=== PATIENT | male | born 1960 | race Caucasian/White ===

== ENCOUNTER 2018-09-02 08:11 | Day surgery (SDC) | payer OTHER ==
[2018-09-01 09:17] VITALS: BMI 31.1
[~2018-09-02 08:11] MED LIST: LACTATED RINGERS 1,000 ML IV SCH; LIDOCAINE 1% 20 ML VIAL (10MG/ML) FOR IV START INTRADERMA PRN
[2018-09-02 08:35] VITALS: TEMP 97.6
[2018-09-02] MEDS ORDERED: PROPOFOL 10 MG/ML 20 ML VIAL IV ONE (09:14)
[2018-09-02] MEDS ORDERED: LIDOCAINE 1% INJ 10MG/ML (20 ML MDV) ONE (09:14)
[2018-09-02] MEDS ORDERED: MIDAZOLAM 2 MG/2 ML VIAL ONE (09:14)
[2018-09-02] MEDS ORDERED: fentaNYL (PF) 50 MCG/ML 2 ML AMP ONE (09:14)
--- NOTE | 2018-09-02 09:40 | P.PCN ---
Date of Procedure: 09/02/18 Procedure(s) Performed: Brief history: Patient is a pleasant 57-year-old white male, scheduled for an elective upper endoscopy as well as colonoscopy as a part of evaluation of GERD/screening for colon cancer. Procedure performed: Esophagogastroduodenoscopy with biopsy Colonoscopy with biopsy and snare polypectomy Preoperative diagnosis: GERD Screening for colon cancer Anesthesia: MAC Procedure: After informed consent was obtained from the patient was brought into the endoscopy unit and IV sedation was administered by anesthesia under continuous monitoring. Initially upper endoscopy was done. The Olympus GF 160 video endoscope was inserted inserted into the mouth and esophagus intubated without any difficulty and was gradually advanced into the stomach and duodenum and carefully examined. The bulb and second part of the duodenum appeared normal. The scope was then withdrawn into the stomach adequately insufflated with air and upon careful examination the antrum had mild gastritis and biopsies were done from this area. There are multiple gastric polyps noted in the body and cardia of the stomach which were biopsied. The polyp that was noted in the cardia of the stomach was almost 1.5-2 cm in size. The mucosa of the body, cardia and fundus appeared normal. The scope was then withdrawn into the esophagus. The GE junction was located at 40 cm to the incisors. small paraesophageal hiatal hernia noted. It appeared regular with no erythema erosions or ulcerations. Rest of the esophagus appeared normal. Patient tolerated the procedure well. At this time the patient continued to remain sedation. Initial digital rectal examination was normal. Olympus CF 160 video colonoscope was then inserted into the rectum and gradually advanced to the cecum without any difficulty. Careful examination was performed as the scope was gradually being withdrawn. The prep was excellent. The cecum, appeared normal. In the setting colon there was a 2-3 mm sessile polyp that was removed by cold biopsy. In the descending colon there was a 3 mm sessile polyp removed by cold biopsy. In the sigmoid colon there was a 5 mm polyp that was removed by snare polypectomy. Rest of the ascending colon, transverse colon, descending colon, sigmoid colon and rectum appeared normal. Scattered left sided diverticulosis seen. Retroflexion was performed in the rectum and no lesions were noted. Patient tolerated the procedure well. Impression: 1. Upper endoscopy revealed multiple gastric polyps and small paraesophageal hiatal hernia 2. Colonoscopy revealed: a) 2 mm sessile ascending colon polyp status post cold biopsy b) 3 mm sessile descending colon polyp status post cold biopsy c) 5 mm sessile sigmoid colon polyp serous was snare polypectomy d) scattered sigmoid diverticula Recommendations: Findings of this examination were discussed with the patient as well as his family. He was advised to follow with the biopsy results. He'll continue with Prilosec 20 mg daily and follow antireflux measures. If the biopsy of the colon polyps shows adenoma, he can have a repeat colonoscopy in 5 years
[2018-09-02 09:46] VITALS: RESP 18
[2018-09-02 10:04] VITALS: BP 123/79; PULSE 58
== END 2018-09-02 10:47 | disposition home or self-care (01) ==
LOC: ORWHC2ENDO 08:11
PROVIDERS: ATTEND Internal Medicine Gastroenterology
DX: Z12.11 Encounter for screening for malignant neoplasm of colon (principal); K63.5 Polyp of colon; K29.50 Unspecified chronic gastritis without bleeding; D12.5 Benign neoplasm of sigmoid colon; K21.9 Gastro-esophageal reflux disease without esophagitis; K57.30 Diverticulosis of large intestine without perforation or abscess without bleeding; K44.9 Diaphragmatic hernia without obstruction or gangrene; I10 Essential (primary) hypertension; E78.5 Hyperlipidemia, unspecified; K31.7 Polyp of stomach and duodenum; Z79.899 Other long term (current) drug therapy
CPT/HCPCS: 88305; 45385; 45380; 43239; J2250; J2001; J3010; J2704

== ENCOUNTER → 2021-08-21 | Outpatient (CLI) | payer OTHER ==
[2021-08-21 10:28] LABS: Partial Thromboplastin Time 23.5 sec (22.0-30.0); Prothrombin Time 10.5 sec (9.0-12.0)
[2021-08-21 10:59] LABS: Appearance,Urine Clear (Clear); Bilirubin,Urine Negative (Negative); Blood,Urine Negative (Negative); Color,Urine Yellow; Glucose,Urine (UA) Negative (Negative); Ketones,Urine Negative (Negative); Leukocyte Esterase,Urine Negative (Negative); Nitrite,Urine Negative (Negative); Protein,Urine Negative (Negative); Urobilinogen,Urine <2.0 mg/dL (<2.0)
[2021-08-21 15:07] LABS: HCT 45.3 % (39.6-50.0); MCH 28.7 pg (27.0-32.0); MCHC 33.1 g/dL (32.0-37.0); MCV 86.8 fL (80.0-97.0); NRBC Per 100 WBC 0 /100 WBCS (0.0-0.0); Platelet Count 244 X 10*3/uL (140-440); RBC 5.22 X 10*6/uL (4.40-5.60); RDW 11.7 % (11.5-14.5); WBC 6.84 X 10*3/uL (4.50-10.00)
[2021-08-21 15:17] LABS: African American GFR (CKD) 69.6 (60.0-200.0); Albumin 4.4 g/dL (3.8-4.9); Albumin/Globulin Ratio 1.53 (1.60-3.17); Anion Gap 11.9 mmol/L (10.00-18.00); BUN/Creat Ratio 12.81 Ratio (12.00-20.00); Blood Urea Nitrogen 16.4 mg/dL (9.0-27.0); Calcium 9.6 mg/dL (8.7-10.3); Carbon Dioxide 24.4 mmol/L (20.0-27.5); Globulin 2.9 g/dL (1.6-3.3); Potassium 4.2 mmol/L (3.5-5.5); Total Bilirubin 0.4 mg/dL (0.30-1.20); Total Protein 7.3 g/dL (6.2-8.2)
== END | disposition home or self-care (01) ==
LOC: LABPAT 09:30
PROVIDERS: ATTEND Orthopaedic Surgery
DX: Z01.812 Encounter for preprocedural laboratory examination (principal)
CPT/HCPCS: 80053; 81003; 85027; 85610; 85730; 87070

== ENCOUNTER 2021-08-29 11:28 | Day surgery (SDC) | payer OTHER ==
[2021-08-27 15:23] VITALS: BMI 31.1
[~2021-08-29 11:28] MED LIST changes: +ACETAMINOPHEN TAB 500 MG TAB PO PRN; +DEXAMETHASONE SOD PHOSPHATE 10 MG/ML 1 ML VIAL IV PRN; +DOCUSATE 100 MG CAP PO PRN; +FAMOTIDINE 20 MG/2 ML VIAL IVP PRN; +KETOROLAC 15 MG/ML 1 ML VIAL IVP PRN; -LACTATED RINGERS 1,000 ML IV SCH; -LIDOCAINE 1% 20 ML VIAL (10MG/ML) FOR IV START INTRADERMA PRN; +ONDANSETRON 4 MG/2 ML VIAL IVP PRN; +TRANEXAMIC ACID 1,000 MG in SODIUM CHLORIDE 0.9% 100 ML IVPB PRN; +VANCOMYCIN 1,000 MG in SODIUM CHLORIDE 0.9% 250 ML IVPB PRN; +oxyCODONE ER 10 MG TAB.ER.12H PO PRN
[2021-08-29] MEDS ORDERED: LIDOCAINE 1% (10MG/ML) FOR IV START INTRADERMA PRN (11:32)
[2021-08-29] MEDS ORDERED: HYDROmorphone 0.5 MG/0.5 ML SYRINGE IVP PRN ×2 (11:32→15:11)
[2021-08-29] MEDS ORDERED: ROPIVACAINE/EPI/CLONIDINE/KET 50 ML SYRINGE MISCELLANE PRN (11:34)
[2021-08-29] MEDS ORDERED: TRANEXAMIC ACID 1,000 MG in SODIUM CHLORIDE 0.9% 100 ML IVPB ONE (11:34)
[2021-08-29] MEDS: LACTATED RINGERS 1,000 ML IV SCH ×2 (12:05→12:33)
[2021-08-29] MEDS ORDERED: PROPOFOL 10 MG/ML 20 ML VIAL IV ONE (12:25)
[2021-08-29] MEDS ORDERED: LIDOCAINE 1% INJ 10MG/ML (20 ML MDV) ONE (12:25)
[2021-08-29] MEDS ORDERED: NEOSTIGMINE 1 MG/ML 10 ML VIAL ONE (12:25)
[2021-08-29] MEDS ORDERED: SODIUM CHLORIDE 0.9% 100 ML BAG ONE (12:25)
[2021-08-29] MEDS ORDERED: GLYCOPYRROLATE 0.2 MG/ML 2 ML VIAL ONE (12:25)
[2021-08-29] MEDS ORDERED: TRANEXAMIC ACID 1,000 MG/10 ML VIAL ONE (12:25)
[2021-08-29] MEDS ORDERED: fentaNYL (PF) 50 MCG/ML 2 ML AMP ONE (12:25)
[2021-08-29] MEDS ORDERED: SUCCINYLCHOLINE CHLORIDE VIAL 200 MG/10 ML VIAL IV ONE (12:25)
[2021-08-29] MEDS ORDERED: PHENYLEPHRINE-0.9% NACL SYG 1,000 MCG/10 ML SYRINGE ONE (12:25)
[2021-08-29] MEDS ORDERED: HYDROmorphone (PF) 1 MG/ML ONE (12:25)
[2021-08-29] MEDS ORDERED: ePHEDrine 50 MG/ML 1 ML VIAL ONE (12:25)
[2021-08-29] MEDS ORDERED: ROCURONIUM 10 MG/ML (5 ML VIAL) IV ONE (12:25)
[2021-08-29] MEDS ORDERED: MIDAZOLAM 2 MG/2 ML VIAL ONE (12:25)
[2021-08-29] MEDS ORDERED: LACTATED RINGERS 1,000 ML IV ONE (14:10)
[2021-08-29] MEDS ORDERED: NALOXONE 0.4 MG/ML 1 ML VIAL IV PRN (15:09)
[2021-08-29] MEDS ORDERED: HYDROmorphone 1 MG/ML 1 ML SYRINGE IVP PRN (15:11)
[2021-08-29] MEDS ORDERED: HYDROcodone/APAP 5-325MG 1 EACH TAB PO PRN (15:11)
[2021-08-29] MEDS ORDERED: hydrOXYzine pamoate 25 MG CAP PO PRN (15:11)
[2021-08-29] MEDS ORDERED: HYDROmorphone 0.2 MG/1 ML SYRINGE IVP PRN (15:11)
--- NOTE | 2021-08-29 15:12 | P.OP ---
Date of Procedure: 08/29/21 Preoperative Diagnosis: Severe right hip arthritis Postoperative Diagnosis: Severe right hip arthritis Procedure(s) Performed: Right direct anterior total hip arthroplasty Implants: 1. Vinicius Trident II 36 mm cup 2. [place] accolade II size #6, 127-degree 3. Biolox delta 40 mm, +0 Anesthesia: GETA Surgeon: Pravin Caballero Physical Therapy Aide #1: Jose King Estimated Blood Loss (ml): 200 IV fluids (ml): 1,200 Pathology: none sent Condition: stable Disposition: PACU Indications for Procedure: I had a long discussion with the patient in the office on the potential risks and complications of an elective total hip replacement through a direct anterior approach. Risks discussed include, but are certainly not limited to, risks from anesthesia, superficial infection requiring local wound care or antibiotics, deep bob-prosthetic joint infection and the treatment required to eradicate infection, intraoperative fracture, postoperative periprosthetic fracture, damage to local blood vessels or nerves particularly the lateral femoral cutaneous nerve, delayed wound healing requiring local wound care or possibly surgical debridement, hip dislocation, leg length discrepancy, soft tissue irritation around the total hip implant such as iliopsoas tendinitis or trochanteric bursitis, wear and osteolysis from the implants, squeaking or audible noises, groin pain, thigh pain, heterotopic ossification, stiffness, aseptic loosening of the implants, dissatisfaction with surgical outcome, need for revision surgery, DVT, PE, swelling of the operative extremity, acute coronary event, stroke, failure to thrive, and possibly loss of life or limb. The patient understands that while these are the most common complications after an elective hip replacement there are certainly other less common complications possible. They were given ample time to ask questions regarding the potential complications of a hip replacement. Following our discussion the patient provided their verbal and written consent to go forward with an elective total hip replacement. Operative Findings: Severe right hip arthritis, with collapse of the femoral head and diffuse arthritic changes both on the femoral head and in the acetabulum Description of Procedure: The patient was identified in the preoperative holding area and the correct hip was marked with my initials. I reviewed the procedure and consent with the patient. All of their questions were answered. The patient was then brought back into the operating room by anesthesia. While on the [facility] anesthesia was administered by the anesthesia team. Preoperative antibiotics and tranexamic acid were also given. After the patient was under anesthesia I examined their ankles to determine their preoperative leg length discrepancy. The skin over the anterior aspect of the hip was shaved to remove hair over the site of planned incision. Both feet and ankles were padded with webril and boots for the Harwick were applied. The patient was then carefully transferred onto the Harwick table. A perineal post was immediately placed. The arms were placed on arm holders and were well-padded. Both boots were secured to the spars on the Harwick table. The patient was positioned so that the pelvis was centered over the post. Nonsterile drapes were applied. A timeout was performed identifying the correct patient, operative extremity, and procedure. At this point fluoroscopy was brought in to take preoperative images of the pelvis and operative hip. Using the standing AP pelvis from the office as a template, a comparable image was obtained with fluoroscopy. A metallic bar was used to create a bi-ischial line for use as a reference to leg length adjustments during the procedure. Global offset was also measured on both the operative and nonoperative leg. Fluoroscopy was then brought out and a pre-scrub using a chlorhexidine scrub brush was performed. The operative limb was then prepped and draped in the standard sterile fashion. An anterior longitudinal incision was made lateral and distal to the ASIS. The skin and subcutaneous tissues were incised sharply. The underlying tensor fascia was identified and incised in its midportion. The fascia was dissected free from the underlying muscle and the muscle belly was retracted. A blunt tipped cobra retractor was placed over the superior neck under the muscle fibers of the gluteus minimus. The deep enveloping fascia of the tensor was incised. The anterior leash of vessels were then identified and cauterized. The fascia between the rectus and the capsule was then incised and the pre-capsular fat was excised. A second Cobra was placed inferior to the neck. The interval between the rectus and iliocapsularis and the hip capsule was developed and a retractor was placed carefully over the anterior rim of the acetabulum. A T-shaped anterior capsulotomy was performed. The superior capsular leaflet was left in place in the inferior capsular flap was excised. The Cobra retractors were placed intracapsularly. We then made a femoral neck osteotomy according to preoperative and intraoperative templating and confirmed the level of the osteotomy using fluoroscopic imaging. The femoral head was removed, passed off to the back table, and sized. The superior capsular flap was excised. Retractors were placed circumferentially exposing the acetabulum. We then circumferentially debrided the acetabulum free of labrum and osteophytes. The pulvinar was removed to fully visualize the cotyloid fossa. We then sequentially reamed to achieve peripheral fit and excellent bleeding subchondral bone. The socket was thoroughly irrigated. The acetabular component was impacted into the appropriate position using fluoroscopy to guide version, inclination, and depth of insertion taking care to have a comparable image of the AP pelvis to the standing image taken in the office. An excellent press-fit was achieved and final position was confirmed using fluoroscopy. The press fit was augmented with bony cancellus dome screws. The liner was then impacted into the socket. Attention was then turned to the femur. The remnant dorsal lateral capsule was excised. The short external rotators were visible and protected. A bone hook was used to confirm appropriate translation of the trochanter away from the acetabulum. The leg was then extended and adducted and the bone hook was used to elevate the femur for broaching. A box osteotome and blunt tipped canal sound was then utilized to gain access to the femoral canal. We then sequentially broached the femur in appropriate anteversion until excellent torsional stability was achieved. The neck cut was brought flush to the trial broach with a calcar planar. A trial neck and head were then placed onto the broach and the hip was atraumatically reduced under direct visualization. External rotation to 90 was performed to assess stability. Fluoroscopy was brought in. An AP and lateral fluoroscopic image of the proximal femur was obtained to assess position and fill of the trial broach. An AP of the pelvis was then obtained and matched to the preoperative image taken. A bi-ischial bar was then placed and measurements were taken to assess changes in length and offset. The hip was then carefully dislocated, the proximal femur was exposed, and the trial implants were removed. The wound and proximal femur was thoroughly irrigated using sterile saline and pulsatile lavage. The final femoral implant was dispensed and gently tapped into place generating an excellent press-fit. The trunnion was cleansed and the final head was tapped into place to engage the Zhu taper. The acetabulum was irrigated and visualized to be free of debris. The hip was carefully reduced. Stability was checked clinically with external rotation to 90 and there was no evidence of instability. Final fluoroscopic images were taken. The wound was then thoroughly irrigated and soaked with a dilute Betadine rinse for 3 minutes. 3 L of sterile saline was irrigated through the wound using pulsatile lavage. Local anesthetic cocktail was injected into the soft tissues around the surgical field. A deep drain was placed. The wound was then closed in layers. A sterile dressing was placed over the surgical incision and drain site. The drapes were taken down and the patient was carefully transferred off of the Harwick table. Following removal of the boots the leg lengths felt acceptable. The patient was then taken to recovery room having tolerated the procedure well. Jose King PA-C was required as a skilled licensed physical therapy assistant for patient positioning, surgical exposure, retraction, placement of implants, and closure of the surgical wound. PLAN: The patient can weight-bear as tolerated on the operative extremity. 2 doses of postoperative antibiotics. DVT prophylaxis with aspirin 81 mg twice a day based on preoperative risk stratification. Physical therapy for gait training. Discontinue drain postoperative day #1 if output is less than 100 mL per shift.
--- NOTE | 2021-08-29 16:11 | XR ---
Fluoroscopy INDICATION: Pain FINDINGS: Fluoroscopy time: 36 seconds. Images obtained: 7. IMPRESSIONS: 1. Documentation of fluoroscopy.
--- NOTE | 2021-08-29 16:18 | FL ---
Fluoroscopy INDICATION: Pain FINDINGS: Fluoroscopy time: Not reported Images obtained: 0. IMPRESSIONS: 1. Documentation of fluoroscopy.
[2021-08-29] MEDS ORDERED: ONDANSETRON 4 MG/2 ML VIAL IVP PRN (19:19)
[2021-08-29] MEDS: ASPIRIN 81 MG PO SCH (20:02)
[2021-08-29] MEDS: HYDROcodone/APAP 5-325MG 1 EACH TAB PO PRN (20:03)
[2021-08-29] MEDS ORDERED: SENNOSIDES-DOCUSATE SODIUM 1 EACH TAB PO SCH (21:00)
[2021-08-30] MEDS: HYDROcodone/APAP 5-325MG 1 EACH TAB PO PRN ×2 (01:13→07:17)
[2021-08-30] MEDS: ASPIRIN 81 MG PO SCH (07:17)
[2021-08-30 07:53] VITALS: BP 120/77; PULSE 64; RESP 16; TEMP 98
[2021-08-30] MEDS ORDERED: ALPRAZolam 0.5 MG TAB PO PRN (09:11)
[2021-08-30] MEDS ORDERED: ATORVASTATIN 20 MG TAB PO SCH (09:15)
[2021-08-30] MEDS ORDERED: LOSARTAN 50 MG TAB PO SCH (09:15)
[2021-08-30] MEDS ORDERED: PANTOPRAZOLE 40 MG TABLET PO SCH (09:15)
[2021-08-30] MEDS ORDERED: PANTOPRAZOLE 40 MG/10 ML VIAL IVP SCH (09:15)
[2021-08-30 09:26] LABS: Basophils # (A) 0.01 X 10*3/uL (0.00-0.10); Basophils % (A) 0.1 %; Eosinophils # (A) 0 X 10*3/uL (0.04-0.35); Eosinophils % (A) 0 %; HGB 12.3 g/dL (13.0-17.0); Immature Grans, Automated 0.4 %; Lymphocytes # (A) 0.69 X 10*3/uL (0.90-5.00); MCH 28.5 pg (27.0-32.0); MCHC 32.4 g/dL (32.0-37.0); MCV 88.2 fL (80.0-97.0); Mean Platelet Volume 10.6 fL (9.5-12.2); Monocytes % (A) 6.9 %; NRBC Per 100 WBC 0 /100 WBCS (0.0-0.0); Neutrophils # (A) 9.98 X 10*3/uL (1.80-7.70); Neutrophils % (A) 86.6 %; Platelet Count 229 X 10*3/uL (140-440); RBC 4.31 X 10*6/uL (4.40-5.60); RDW 11.9 % (11.5-14.5); WBC 11.53 X 10*3/uL (4.50-10.00)
--- NOTE | 2021-08-30 12:59 | P.DS ---
Providers Expected date of discharge: 08/30/21 Attending physician: Pravin Caballero Consults: 08/29/21 15:19 Consult Physician Routine Consulting Provider: Kush Kessler Reason/Comments: medical management Do you want consulting provider notified?: Yes Primary care physician: Kush Kessler [facility] Course: This is a 60-year-old male who has been followed in our office by Dr. Caballero for continued complaints of right hip pain due to right hip osteoarthritis. Treatment options were discussed, and patient elected to undergo a right total hip arthroplasty. Patient was seen pre-operatively by Dr. Kessler and cleared for surgery. Patient underwent a right total hip arthroplasty on 08/29/21. The procedure was performed without complication or sequelae. The patient is doing fairly well postoperatively. Vital signs and labs are stable on postoperative day #1. Hemovac drain was pulled bedside this afternoon. Patient was examined bedside today. Patient states he is overall doing very well and the pain in his right hip is well-controlled. He has been ambulating with a walker with minimal assistance. He has worked with physical therapy this morning. Patient is tolerating his diet well. He is voiding without issues. Patient is comfortable being discharged home today. Patient denies chest pain, shortness of breath, nausea, vomiting, fevers, chills. On examination, the patient is sitting up in the bed in no apparent distress. He is alert and orientated 3. On inspection of the right hip, there is a clean, dry, intact surgical dressing in place. There is no bleeding or drainage the dressing. Patient has good strength and ROM of the right ankle and toes. Motor and sensory function is intact of the right lower extremity. The dorsalis pedis pulse is easily palpable, the right lower extremity is warm and well perfused with brisk capillary refill. Calf is soft and non-tender to palpation. Patient is discharged home with home health in good condition, pending medical clearance. Patient will follow-up with Dr. Caballero in the office in 1 week. Please see med rec for accurate list of discharge medication. Plan - Discharge Summary Discharge Rx Participant: No New Discharge Prescriptions: New Aspirin 81 mg PO BID 30 Days #60 tab Docusate [Colace] 100 mg PO BID #60 capsule HYDROcodone/APAP 5-325MG [[place] 5-325] 1 - 2 tab PO Q6HR PRN 7 Days #40 tab PRN Reason: Pain Omeprazole 40 mg PO DAILY 30 Days #30 cap No Action Simvastatin [Zocor] 40 mg PO DAILY Losartan Potassium 100 mg PO DAILY Omeprazole [PriLOSEC] [address] [facility] 1 tab PO DAILY ALPRAZolam [Xanax] 0.5 mg PO HS PRN PRN Reason: sleep [place]-3 Fatty Acids/Fish Oil [Fish Oil 1,000 mg Softgel] 1 each PO DAILY Cyclobenzaprine [Flexeril] 10 mg PO DAILY PRN PRN Reason: muscle spasms traMADol HCL [Ultram] 50 mg PO Q6HR PRN PRN Reason: Pain Mupirocin 2% Oint [Bactroban 2% Oint] 1 applic NASAL TID Discharge Medication List [facility] 1 tab PO DAILY 09/01/18 [History] Losartan Potassium 100 mg PO DAILY 09/01/18 [History] Omeprazole [PriLOSEC] 40 mg PO DAILY 09/01/18 [History] Simvastatin [Zocor] 40 mg PO DAILY 09/01/18 [History] ALPRAZolam [Xanax] 0.5 mg PO HS PRN 08/27/21 [History] Cyclobenzaprine [Flexeril] 10 mg PO DAILY PRN 08/27/21 [History] Mupirocin 2% Oint [Bactroban 2% Oint] 1 applic NASAL TID 08/27/21 [History] [place]-3 Fatty Acids/Fish Oil [Fish Oil 1,000 mg Softgel] 1 each PO DAILY 08/27/21 [History] traMADol HCL [Ultram] 50 mg PO Q6HR PRN 08/27/21 [History] Aspirin 81 mg PO BID 30 Days #60 tab 08/30/21 [Rx] Docusate [Colace] 100 mg PO BID #60 capsule 08/30/21 [Rx] HYDROcodone/APAP 5-325MG [[place] 5-325] 1 - 2 tab PO Q6HR PRN 7 Days #40 tab 08/30/21 [Rx] Omeprazole 40 mg PO DAILY 30 Days #30 cap 08/30/21 [Rx] Follow up Appointment(s)/Referral(s): Kush Kessler DO [Primary Care Provider] - 1 Week [facility] [NON-STAFF] - (Please call [facility] if you have questions regarding your walker. ) [facility], [NON-STAFF] - ([facility] will call you to schedule your in home physical therapy visits. You will have 3 visits/week for about an hour each. ) Pravin Caballero MD [Medical Doctor] - 09/10/21 9:00 am Activity/Diet/Wound Care/Special Instructions: Weight bear as tolerated on operative leg with a walker. Keep operative dressing intact until follow-up in the office. Take pain medications as prescribed. Take aspirin 81mg BID x 4 weeks. Follow-up in the office in [address] Cablalero. Call the office with any questions or concerns, Discharge Disposition: HOME SELF-CARE
--- NOTE | 2021-08-30 13:20 | P.CONS ---
History of Present Illness - Reason for Consult Consult date: 08/30/21 Medical management gastroesophageal reflux disease, hypertension Requesting physician: Pravin Caballero - Chief Complaint Right hip arthritis status post anterior total hip arthroplasty - History of Present Illness This is 60-year-old gentleman admitted with severe right hip arthritis, status post right direct anterior total hip arthroplasty. Tolerated procedure well. Ambulating, tolerating exertion well denies lightheadedness, dizziness, focal deficits. Denies chest pain, palpitations or shortness of breath. Passing flatus. Maintaining O2 sats in the 90s on room air. Pain controlled, complains of incisional soreness. Hemovac drain present. Review of Systems Constitutional: Denied any fatigue denied any fever. Cardio vascular: denied any chest pain, palpitations Gastrointestinal denied any nausea vomiting Pulmonary: Denied any shortness of breath cough Neurologic denied any new focal deficits ROS Statement: Those systems with pertinent positive or pertinent negative responses have been documented in the HPI. ROS Other: All systems not noted in ROS Statement are negative. Past Medical History Past Medical History: GERD/Reflux, Hyperlipidemia, Hypertension, Osteoarthritis (OA) Additional Past Medical History / Comment(s): hiatal hernia, colitis, History of Any Multi-Drug Resistant Organisms: None Reported Past Surgical History: Joint Replacement, Orthopedic Surgery Additional Past Surgical History / Comment(s): left shoulder replacement, 2 prior left shoulder surgeries, left knee replacement, L knee arthroscopy x 2, elbow sx Past Anesthesia/Blood Transfusion Reactions: Motion Sickness Past Psychological History: Anxiety Smoking Status: Never smoker Past Alcohol Use History: Occasional Past Drug Use History: None Reported - Past Family History Mother Family Medical History: No Reported History Medications and Allergies Home Medications Medication Instructions Recorded Confirmed Type Ct [facility] 1 tab PO DAILY 09/01/18 08/29/21 History Losartan Potassium 100 mg PO DAILY 09/01/18 08/29/21 History Omeprazole [PriLOSEC] 40 mg PO DAILY 09/01/18 08/29/21 History Simvastatin [Zocor] 40 mg PO DAILY 09/01/18 08/29/21 History ALPRAZolam [Xanax] 0.5 mg PO HS PRN 08/27/21 08/29/21 History Cyclobenzaprine [Flexeril] 10 mg PO DAILY PRN 08/27/21 08/29/21 History Mupirocin 2% Oint [Bactroban 2% 1 applic NASAL TID 08/27/21 08/29/21 History Oint] [place]-3 Fatty Acids/Fish Oil [Fish 1 each PO DAILY 08/27/21 08/27/21 History Oil 1,000 mg Softgel] traMADol HCL [Ultram] 50 mg PO Q6HR PRN 08/27/21 08/29/21 History Aspirin 81 mg PO BID 30 Days #60 tab 08/30/21 Rx Docusate [Colace] 100 mg PO BID #60 capsule 08/30/21 Rx HYDROcodone/APAP 5-325MG [[place] 1 - 2 tab PO Q6HR PRN 7 Days #40 08/30/21 Rx 5-325] tab Omeprazole 40 mg PO DAILY 30 Days #30 cap 08/30/21 Rx Allergies Allergy/AdvReac Type Severity Reaction Status Date / Time No Known Allergies Allergy Verified 08/29/21 11:47 Physical Exam Vitals: Vital Signs Temp Pulse Pulse Resp BP BP Pulse Ox 08/30/21 07:52 98.0 F 64 16 120/77 97 08/30/21 01:08 98.6 F 92 15 111/71 96 08/29/21 19:38 98.0 F 90 15 115/73 96 08/29/21 17:52 89 124/76 95 08/29/21 17:37 69 114/75 94 L 08/29/21 17:22 66 142/76 95 08/29/21 16:52 67 125/81 95 08/29/21 16:37 97.9 F 74 16 138/77 94 L 08/29/21 16:15 61 16 127/75 94 L 08/29/21 16:00 67 16 128/74 97 08/29/21 15:45 75 16 128/74 94 L 08/29/21 15:30 66 16 133/79 98 08/29/21 15:17 75 16 147/90 98 08/29/21 15:10 18 98 08/29/21 15:07 97.7 F 78 16 150/86 99 08/29/21 11:51 97.1 F L 54 L 16 140/83 98 Intake and Output 08/29/21 08/30/21 08/30/21 22:59 06:59 14:59 Intake Total 640 620 Output Total 445 250 200 Balance 195 370 -200 Intake: IV 100 Intake, IV Titration 620 Amount Lactated Ringers 1,000 ml 520 @ 20 mls/hr IV .Q24H COMPA Rx#:[id number] ceFAZolin 2 gm In Sodium 100 Chloride 0.9% 50 ml @ 100 mls/hr IVPB Q8H COMPA Rx#: [id number] Oral 540 Output: Drainage 120 150 Right Anterior 120 150 Urine 325 100 200 Other: # Voids 0 Weight 109.3 kg PHYSICAL EXAM: VITAL SIGNS: [As above] GENERAL: Sitting up in bed, no acute distress HEENT: Conjunctivae normal. eyes normal. NECK: No JVD. No thyroid enlargement. No LNs CARDIOVASCULAR: S1, S2 regular.. No murmur RESPIRATION: Breath sounds diminished in the bases. No rhonchi or crackles. No bronchial breathing. ABDOMEN: Soft, nontender . No guarding. no masses palpable. No ascites, No hepatosplenomegaly.Bowel sounds heard. EXTREMITIES: Right hip warmth, dressing clean dry and intact, no calf tenderness,positive DP PSYCHIATRY: Alert and oriented X3, mood and affect normal. NERVOUS SYSTEM: Cranial N 2-12 grossly normal. Moves all 4 limbs. No focal deficits. Strength and sensation grossly intact. Skin: Warm and dry, no rash Results CBC & Chem 7: 08/30/21 05:15 Assessment and Plan Assessment: Right hip osteoarthritis status post anterior total arthroplasty Gastroesophageal reflux disease Hypertension Hyperlipidemia Anxiety Plan: Continue on current medication regime ,monitoring and symptomatic treatment. PPI added on for GI prophylaxis. Pain management and DVT prophylaxis as per primary. PT. Aggressive pulmonary toileting with incentive spirometer reinforced. Patient anticipates discharge home today. Discharge planning in progress as per orthopedic surgery. Follow-up with PCP, Dr. Kessler in [address] Caballero for the consult. The impression and plan of care has been dictated as directed. : I performed a history and examination of this patient, discussed the same with the dictator. I agree with the dictator's note ,documented as a scribe. Any additional findings or plans will be noted.
[2021-08-31] MEDS ORDERED: NON FORMULARY DRUG (Omega-3 Fatty Acids/Fish Oil [Fish Oil 1,000 Mg Softgel] 1 EACH Capsul PO SCH (09:00)
== END 2021-08-30 13:50 | disposition home or self-care (01) ==
LOC: OR 11:28 → 4SSUR 16:09 → OR 08-30 13:50
PROVIDERS: ATTEND Orthopaedic Surgery
DX: M16.11 Unilateral primary osteoarthritis, right hip (principal); I10 Essential (primary) hypertension; Z20.822 Contact with and (suspected) exposure to COVID-19; E78.00 Pure hypercholesterolemia, unspecified; Z98.890 Other specified postprocedural states; Z79.899 Other long term (current) drug therapy
CPT/HCPCS: 97161; 86900; 86901; 85025; 86850; 88300; 87635; 73501; 27130; C1776; J2250; J0330; J1100; J2710; J0690 ×2; J2405; J2001; J3010; J1170; J1885; J2370; J2704

== ENCOUNTER 2024-06-23 11:28 | Day surgery (SDC) | payer OTHER ==
[2024-06-21 15:08] VITALS: BMI 31.1
[~2024-06-23 11:28] MED LIST changes: -ACETAMINOPHEN TAB 500 MG TAB PO PRN; -DEXAMETHASONE SOD PHOSPHATE 10 MG/ML 1 ML VIAL IV PRN; -DOCUSATE 100 MG CAP PO PRN; -FAMOTIDINE 20 MG/2 ML VIAL IVP PRN; -KETOROLAC 15 MG/ML 1 ML VIAL IVP PRN; +TRANEXAMIC 1,000 MG/100ML-NACL 1,000 MG in SALINE 1 100ML.BAG IV PRN; +TRANEXAMIC 1,000 MG/100ML-NACL 1,000 MG in SALINE 1 100ML.BAG IVPB PRN; -TRANEXAMIC ACID 1,000 MG in SODIUM CHLORIDE 0.9% 100 ML IVPB PRN; -VANCOMYCIN 1,000 MG in SODIUM CHLORIDE 0.9% 250 ML IVPB PRN; -oxyCODONE ER 10 MG TAB.ER.12H PO PRN
[2024-06-23] MEDS: IV FLUID CONTINUATION 1,000 ML IV ONE (11:54)
[2024-06-23] MEDS: DOCUSATE 100 MG CAP PO PRN (12:26)
[2024-06-23] MEDS: oxyCODONE ER 10 MG TAB.ER.12H PO PRN (12:26)
[2024-06-23] MEDS: ACETAMINOPHEN TAB 500 MG TAB PO PRN (12:26)
[2024-06-23] MEDS: LACTATED RINGERS 1,000 ML IV SCH (12:26)
[2024-06-23] MEDS: ONDANSETRON 4 MG/2 ML VIAL IVP ONE (12:27)
[2024-06-23] MEDS: FAMOTIDINE 20 MG/2 ML VIAL IVP PRN (12:28)
[2024-06-23] MEDS: DEXAMETHASONE SOD PHOSPHATE 10 MG/ML 1 ML VIAL IV PRN (12:28)
[2024-06-23] MEDS: KETOROLAC 15 MG/ML 1 ML VIAL IVP PRN (12:28)
[2024-06-23] MEDS: MIDAZOLAM 2 MG/2 ML VIAL IV STA (12:41)
[2024-06-23] MEDS: fentaNYL (PF) 50 MCG/ML 2 ML AMP IVP STA (12:41)
[2024-06-23] MEDS: VANCOMYCIN 1,500 MG in SODIUM CHLORIDE 0.9% 500 ML 500 ML IVPB PRN (12:52)
[2024-06-23] MEDS ORDERED: fentaNYL (PF) 50 MCG/ML 2 ML AMP ONE (13:43)
[2024-06-23] MEDS ORDERED: MIDAZOLAM 2 MG/2 ML VIAL ONE (13:43)
[2024-06-23] MEDS ORDERED: PROPOFOL 10 MG/ML 20 ML VIAL IV ONE (13:43)
[2024-06-23] MEDS ORDERED: HYDROmorphone (PF) 1 MG/ML ONE (13:43)
[2024-06-23] MEDS ORDERED: ePHEDrine 50 MG/ML 1 ML VIAL ONE (13:43)
[2024-06-23] MEDS ORDERED: SUCCINYLCHOLINE CHLORIDE 200 MG/10 ML VIAL IV ONE (13:43)
[2024-06-23] MEDS ORDERED: GLYCOPYRROLATE 0.2 MG/ML 2 ML VIAL ONE (13:43)
[2024-06-23] MEDS ORDERED: NEOSTIGMINE 1 MG/ML 10 ML VIAL ONE (13:43)
[2024-06-23] MEDS ORDERED: ROPIVACAINE 5 MG/ML 30 ML VIAL ONE (13:43)
[2024-06-23] MEDS ORDERED: ROCURONIUM 10 MG/ML (5 ML VIAL) IV ONE (13:43)
[2024-06-23] MEDS ORDERED: LIDOCAINE 1% INJ 10MG/ML (20 ML MDV) ONE (13:43)
[2024-06-23] MEDS: ROPIVACAINE/EPI/CLONIDINE/KET 50 ML SYRINGE MISCELLANE PRN (14:40)
--- NOTE | 2024-06-23 14:59 | P.ANPRN ---
Procedure Note - Anesthesia - Nerve Block Performed Left Zay Single Time Out Performed: Yes ([id number]) Date of Procedure: 06/23/24 Procedure Start Time: : Procedure Stop Time: :44 Indication: Acute Post-Operative Pain, Requested by Surgeon Specifically requested for management of pain by DrDanna: Pravin Caballero Sedation Type: Sedate with meaningful contact maintained Preparation: Sterile Prep Position: Supine Catheter: None Needle Types: Pajunk Needle Gauge: 21 Ultrasound used to visualize needle placement: Yes Ultrasound used to observe medication spread: Yes Injectate: 0.5% Ropivacaine (see comment for volume) (30cc) Blood Aspirated: No Pain Paresthesia on Injection Noted: No Resistance on Injection: Normal Image Stored and Saved: Yes Events: Uneventful and Well Tolerated
[2024-06-23] MEDS: LACTATED RINGERS 1,000 ML IV ONE (15:18)
[2024-06-23] MEDS ORDERED: MAGNESIUM HYDROXIDE 2,400 MG/30 ML CUP PO PRN (15:35)
[2024-06-23] MEDS ORDERED: NALOXONE 0.4 MG/ML 1 ML VIAL IV PRN (15:35)
[2024-06-23] MEDS ORDERED: HYDROcodone/APAP 5-325MG 1 EACH TAB PO PRN (15:35)
[2024-06-23] MEDS ORDERED: diazePAM 5 MG TAB PO PRN ×2 (15:35)
[2024-06-23] MEDS ORDERED: HYDROmorphone 0.5 MG/0.5 ML SYRINGE IVP PRN ×2 (15:35)
[2024-06-23] MEDS ORDERED: hydrOXYzine pamoate 25 MG CAP PO PRN (15:35)
[2024-06-23] MEDS ORDERED: ONDANSETRON 4 MG/2 ML VIAL IVP PRN (15:35)
--- NOTE | 2024-06-23 15:35 | P.OP ---
Date of Procedure: 06/23/24 Preoperative Diagnosis: 1. Severe left hip osteoarthritis Postoperative Diagnosis: Same Procedure(s) Performed: Left direct anterior total hip arthroplasty Implants: 1. Vinicius Trident II Acetabular Cup, Size #60 2. Nazlini Insignia Size # 7 Femoral Stem, High Offset 3. Biolox delta femoral head, 36 mm, - 2.5 mm neck Anesthesia: GETA, regional Surgeon: Pravin Caballero Retail Manager In Training #1: Jose Alfredo Mendiola Estimated Blood Loss (ml): 200 IV fluids (ml): 800 Pathology: none sent Condition: stable Disposition: PACU Indications for Procedure: I had a long discussion with the patient in the office on the potential risks and complications of an elective total hip replacement through a direct anterior approach. Risks discussed include, but are certainly not limited to, risks from anesthesia, superficial infection requiring local wound care or antibiotics, deep bob-prosthetic joint infection and the treatment required to eradicate infection, intraoperative fracture, postoperative periprosthetic fracture, damage to local blood vessels or nerves particularly the lateral femoral cutaneous nerve, delayed wound healing requiring local wound care or possibly surgical debridement, hip dislocation, leg length discrepancy, soft tissue irritation around the total hip implant such as iliopsoas tendinitis or trochanteric bursitis, wear and osteolysis from the implants, squeaking or audible noises, groin pain, thigh pain, heterotopic ossification, stiffness, aseptic loosening of the implants, dissatisfaction with surgical outcome, need for revision surgery, DVT, PE, swelling of the operative extremity, acute coronary event, stroke, failure to thrive, and possibly loss of life or limb. The patient understands that while these are the most common complications after an elective hip replacement there are certainly other less common complications possible. They were given ample time to ask questions regarding the potential complications of a hip replacement. Following our discussion the patient provided their verbal and written consent to go forward with an elective total hip replacement. Operative Findings: Severe hip arthritis Description of Procedure: The patient was identified in the preoperative holding area and the correct hip was marked with my initials. I reviewed the procedure and consent with the patient. All of their questions were answered. The patient was then brought back into the operating room by anesthesia. While on the [facility] anesthesia was administered by the anesthesia team. Preoperative antibiotics and tranexamic acid were also given. After the patient was under anesthesia I examined their ankles to determine their preoperative leg length discrepancy. The skin over the anterior aspect of the hip was shaved to remove hair over the site of planned incision. Both feet and ankles were padded with webril and boots for the [place] were applied. The patient was then carefully transferred onto the [place] table. A perineal post was immediately placed. The arms were placed on arm holders and were well-padded. Both boots were secured to the spars on the [place] table. The patient was positioned so that the pelvis was centered over the post. Nonsterile drapes were applied. A timeout was performed identifying the correct patient, operative extremity, and procedure. At this point fluoroscopy was brought in to take preoperative images of the pelvis and operative hip. Using the standing AP pelvis from the office as a template, a comparable image was obtained with fluoroscopy. A metallic bar was used to create a bi-ischial line for use as a reference to leg length adjustments during the procedure. Global offset was also measured on both the operative and nonoperative leg. Fluoroscopy was then brought out and a pre-scrub using a chlorhexidine scrub brush was performed. The operative limb was then prepped and draped in the standard sterile fashion. An anterior longitudinal incision was made lateral and distal to the ASIS. The skin and subcutaneous tissues were incised sharply. The underlying tensor fascia was identified and incised in its midportion. The fascia was dissected free from the underlying muscle and the muscle belly was retracted. A blunt tipped cobra retractor was placed over the superior neck under the muscle fibers of the gluteus minimus. The deep enveloping fascia of the tensor was incised. The anterior leash of vessels were then identified and cauterized. The fascia between the rectus and the capsule was then incised and the pre-capsular fat was excised. A second Cobra was placed inferior to the neck. The interval between the rectus and iliocapsularis and the hip capsule was developed and a retractor was placed carefully over the anterior rim of the acetabulum. A T-shaped anterior capsulotomy was performed. The superior capsular leaflet was left in place in the inferior capsular flap was excised. The Cobra retractors were placed intracapsularly. We then made a femoral neck osteotomy according to preoperative and intraoperative templating and confirmed the level of the osteotomy using fluoroscopic imaging. The femoral head was removed, passed off to the back table, and sized. The superior capsular flap was excised. Retractors were placed circumferentially exposing the acetabulum. We then circumferentially debrided the acetabulum free of labrum and osteophytes. The pulvinar was removed to fully visualize the cotyloid fossa. We then sequentially reamed to achieve peripheral fit and excellent bleeding subchondral bone. The socket was thoroughly irrigated. There were two, large subchondral cysts in the acetabulum. Both were debrided and packed with bone graft from the femoral head/neck. The acetabular component was impacted into the appropriate position using fluoroscopy to guide version, inclination, and depth of insertion taking care to have a comparable image of the AP pelvis to the standing image taken in the office. An excellent press-fit was achieved and final position was confirmed using fluoroscopy. The press fit was augmented with a bony cancellus dome screw. The liner was then impacted into the socket. Attention was then turned to the femur. The remnant dorsal lateral capsule was excised. The short external rotators were visible and protected. A bone hook was used to confirm appropriate translation of the trochanter away from the acetabulum. The leg was then extended and adducted and the bone hook was used to elevate the femur for broaching. A box osteotome and blunt tipped canal sound was then utilized to gain access to the femoral canal. We then sequentially broached the femur in appropriate anteversion until excellent torsional stability was achieved. The neck cut was brought flush to the trial broach with a calcar planar. A trial neck and head were then placed onto the broach and the hip was atraumatically reduced under direct visualization. External rotation to 90 was performed to assess stability. Fluoroscopy was brought in. An AP and lateral fluoroscopic image of the proximal femur was obtained to assess position and fill of the trial broach. An AP of the pelvis was then obtained and matched to the preoperative image taken. A bi-ischial bar was then placed and measurements were taken to assess changes in length and offset. The hip was then carefully dislocated, the proximal femur was exposed, and the trial implants were removed. The wound and proximal femur was thoroughly irrigated using sterile saline and pulsatile lavage. The final femoral implant was dispensed and gently tapped into place generating an excellent press-fit. The trunnion was cleansed and the final head was tapped into place to engage the Zhu taper. The acetabulum was irrigated and visualized to be free of debris. The hip was carefully reduced. Stability was checked clinically with external rotation to 90 and there was no evidence of instability. Final fluoroscopic images were taken. The wound was then thoroughly irrigated and soaked with a dilute Betadine rinse for 3 minutes. 3 L of sterile saline was irrigated through the wound using pulsatile lavage. Local anesthetic cocktail was injected into the soft tissues around the surgical field. The wound was then closed in layers. A sterile dressing was placed over the surgical incision. The drapes were taken down and the patient was carefully transferred off of the [place] table. Following removal of the boots the leg lengths felt acceptable. The patient was then taken to recovery room having tolerated the procedure well. Jose Alfredo Mendiola PA-C was required as a skilled assistant baseball coach due to the complexity of surgery for patient positioning, draping, exposure, retraction, closure of wound and application of dressing. PLAN: The patient can weight-bear as tolerated on the operative extremity. DVT prophylaxis with aspirin 81 mg twice a day based on preoperative risk stratification. Physical therapy for gait training. Leave surgical dressing in place. Internal medicine for perioperative medical management.
--- NOTE | 2024-06-23 15:38 | FL ---
EXAMINATION TYPE: FL guidance operating room, XR Hip Limited LT DATE OF EXAM: 06/23/2024 3:30 PM COMPARISON: Pre Operative Images if available both CT/MRI or plain film CLINICAL INDICATION: Male, 63 years old with history of LEFT ANTERIOR HIP; TECHNIQUE: FL guidance operating room, XR Hip Limited LT, multiple fluoroscopic images provided for p rocedure. Total fluoroscopy time: 24.6 seconds Total submitted images to PACS: 6 DAP: 1.2032 mGym2 Gycm2 uGym2 cGycm2 or equivalent. FINDINGS: Fluoroscopic images during internal fixation/arthroplasty demonstrate hardware in appropriate positio n. Hardware appears intact. No immediate complication identified. IMPRESSION: 1. No evidence for intraoperative complication. 2. Please see the operative/procedural note for further details. [facility], , 06/23/2024 3:36 PM
[2024-06-23] MEDS: HYDROmorphone 0.5 MG/0.5 ML SYRINGE IVP PRN (16:19)
[2024-06-23] MEDS: DEXAMETHASONE SOD PHOSPHATE 4 MG/ML 1 ML VIAL IV ONE (16:42)
[2024-06-23] MEDS: SODIUM CHLORIDE 0.9% 1,000 ML IV SCH (17:14)
[2024-06-23] MEDS: HYDROcodone/APAP 10-325MG 1 EACH TAB PO PRN (17:31)
[2024-06-23] MEDS: ASPIRIN 81 MG PO SCH (20:20)
[2024-06-23] MEDS: HYDROmorphone 1 MG/ML 1 ML SYRINGE IVP PRN (20:20)
[2024-06-23] MEDS: SENNOSIDES-DOCUSATE SODIUM 1 EACH TAB PO SCH (20:20)
[2024-06-24] MEDS ORDERED: ALPRAZolam 0.5 MG TAB PO PRN (06:32)
[2024-06-24 07:38] VITALS: BP 139/87; PULSE 82; RESP 18; TEMP 98.8
[2024-06-24] MEDS: MELOXICAM 7.5 MG TAB PO SCH (07:52)
[2024-06-24] MEDS: PANTOPRAZOLE 40 MG TABLET PO SCH (07:52)
[2024-06-24] MEDS: ATORVASTATIN 20 MG TAB PO SCH (07:52)
[2024-06-24] MEDS: LOSARTAN 50 MG TAB PO SCH (07:53)
[2024-06-24] MEDS: FAMOTIDINE 20 MG TAB PO SCH (07:53)
--- NOTE | 2024-06-24 08:05 | P.DS ---
Providers Attending physician: Pravin Caballero Consults: 06/23/24 15:35 Consult Physician Routine Consulting Provider: Kush Kessler Reason/Comments: post op medical management Do you want consulting provider notified?: Yes Primary care physician: Kush Kessler [facility] Course: This is a 63-year-old male patient, with past medical history of severe left hip osteoarthritis, who failed nonsurgical conservative management. On 06/23/2024 the patient presented to the [facility] pre-op department for scheduled total arthroplasty with Dr. Caballero. The patient tolerated the procedure well. The patient was transferred to the orthopedic floor. The patient had no acute events over night. The patient's pain has been well-controlled. Patient was examined at bedside this morning. Patient is resting comfortably in bed. No apparent distress. They are awake, alert and able to answer questions. On inspection the surgical hip dressing is intact, there is no drainage or strikethrough. The skin surrounding the d ressing is free of erythema. There is mild swelling in the operative thigh. Operative femoral nerve function is intact. The operative calf is soft to compression. The patient is able to actively plantarflex and dorsiflex their operative ankle and toes. Their operative foot appears well perfused. Plan to discharge home today if passes physical therapy. Plan follow up in two weeks in our office. Please see med rec for a list of accurate medications. Dictation was produced using [employer] dictation software, please excuse any grammatical, word or spelling errors. Assessment: Postop day #1 left total hip arthroplasty for severe left hip osteoarthritis by Dr. Caballero Left hip pain Plan - Discharge Summary Discharge Rx Participant: No New Discharge Prescriptions: New Docusate [Colace] 100 mg PO BID #60 capsule Celecoxib [CeleBREX] 200 mg PO BID #60 cap Aspirin 81 mg PO BID #60 tab Omeprazole [PriLOSEC] 40 mg PO DAILY #30 cap Ondansetron [Zofran] 4 mg PO Q8HR PRN #20 tab PRN Reason: Nausea oxyCODONE-APAP 5-325MG [Percocet 5-325 mg] 1 tab PO Q6HR PRN #32 tab PRN Reason: Pain No Action Simvastatin [Zocor] 40 mg PO DAILY Losartan Potassium 50 mg PO QAM Omeprazole [PriLOSEC] [address] [facility] 1 tab PO DAILY ALPRAZolam [Xanax] 0.5 mg PO HS PRN PRN Reason: sleep Maiden-3 Fatty Acids/Fish Oil [Fish Oil 1,000 mg Softgel] 1 each PO DAILY traMADol HCL [Ultram] 50 - 100 mg PO TID PRN PRN Reason: Pain Mupirocin 2% Oint [Bactroban 2% Oint] 1 applic NASAL TID Celecoxib [CeleBREX] 200 mg PO BID Discharge Medication List Ct [facility] 1 tab PO DAILY 09/01/18 [History] Losartan Potassium 50 mg PO QAM 09/01/18 [History] Omeprazole [PriLOSEC] 40 mg PO QAM 09/01/18 [History] Simvastatin [Zocor] 40 mg PO DAILY 09/01/18 [History] ALPRAZolam [Xanax] 0.5 mg PO HS PRN 08/27/21 [History] Mupirocin 2% Oint [Bactroban 2% Oint] 1 applic NASAL TID 08/27/21 [History] Maiden-3 Fatty Acids/Fish Oil [Fish Oil 1,000 mg Softgel] 1 each PO DAILY 08/27/21 [History] traMADol HCL [Ultram] 50 - 100 mg PO TID PRN 08/27/21 [History] Celecoxib [CeleBREX] 200 mg PO BID 06/21/24 [History] Aspirin 81 mg PO BID #60 tab 06/24/24 [Rx] Celecoxib [CeleBREX] 200 mg PO BID #60 cap 06/24/24 [Rx] Docusate [Colace] 100 mg PO BID #60 capsule 06/24/24 [Rx] Omeprazole [PriLOSEC] 40 mg PO DAILY #30 cap 06/24/24 [Rx] Ondansetron [Zofran] 4 mg PO Q8HR PRN #20 tab 06/24/24 [Rx] oxyCODONE-APAP 5-325MG [Percocet 5-325 mg] 1 tab PO Q6HR PRN #32 tab 06/24/24 [Rx] Follow up Appointment(s)/Referral(s): Pravin Caballero MD [Medical Doctor] - 2 Weeks Activity/Diet/Wound Care/Special Instructions: 1. Weight-bear as tolerated on your operative extremity unless instructed otherwise. Use a walker or other assistive device to ambulate. 2. Leave surgical dressing in place. If your dressing becomes saturated with blood, there is drainage, or the dressing becomes loose please contact the office. 3. It is okay to shower with your surgical dressing, but do not submerge in water (no hot tubs, bath's, swimming etc.) 4. Take your blood clot prevention medication as prescribed (aspirin, Eliquis, Xarelto, and Plavix are commonly prescribed medications for blood clot prevention) 5. While taking [place] or Percocet for pain take a stool softener (Ex: Colace) and drink lots of water. 6. Keep all follow-up appointments as scheduled. You will usually be seen in 1-2 weeks following surgery. 7. Please contact the office with any questions or concerns [phone] Discharge Disposition: HOME WITH HOME HEALTH SERVICES
[2024-06-24 08:46] LABS: Basophils # (A) 0.02 X 10*3/uL (0.00-0.10); Basophils % (A) 0.1 %; Eosinophils # (A) 0 X 10*3/uL (0.04-0.35); Eosinophils % (A) 0 %; HCT 40.5 % (39.6-50.0); HGB 13.3 g/dL (13.0-17.0); Lymphocytes # (A) 0.73 X 10*3/uL (0.90-5.00); Lymphocytes % (A) 4.8 %; MCH 28.9 pg (27.0-32.0); MCHC 32.8 g/dL (32.0-37.0); Mean Platelet Volume 10.7 FL (9.5-12.2); Monocytes # (A) 1.07 X 10*3/uL (0.20-1.00); NRBC Per 100 WBC 0 X 10*3/uL (0.00-0.01); Neutrophils # (A) 13.31 X 10*3/uL (1.80-7.70); Neutrophils % (A) 87.5 %; Platelet Count 220 X 10*3/uL (140-440); RDW 11.9 % (11.5-14.5); WBC 15.22 X 10*3/uL (4.50-10.00)
[2024-06-24] MEDS: MUPIROCIN 2% OINT 22 GM TUBE NASAL SCH (11:14)
--- NOTE | 2024-06-24 11:31 | P.CONS ---
History of Present Illness - Reason for Consult Consult date: 06/24/24 Medical management Requesting physician: Pravin Caballero - Chief Complaint Left hip osteoarthritis, status post total hip arthroplasty - History of Present Illness This is 63-year-old gentleman admitted with severe left hip arthritis, status post left direct anterior total hip arthroplasty. Tolerated procedure well. Ambulating, tolerating exertion well. PT pending. denies lightheadedness, dizziness, focal deficits. Denies chest pain, palpitations or shortness of breath. Passing flatus. Maintaining O2 sats in the 90s on room air. Pain controlled. Review of Systems Review of Systems Constitutional: Denied any fatigue denied any fever. Cardio vascular: denied any chest pain, palpitations Gastrointestinal denied any nausea vomiting Pulmonary: Denied any shortness of breath cough Neurologic denied any new focal deficits ROS Statement: Those systems with pertinent positive or pertinent negative responses have been documented in the HPI. ROS Other: All systems not noted in ROS Statement are negative. Past Medical History Past Medical History: GERD/Reflux, Hyperlipidemia, Hypertension, Osteoarthritis (OA) Additional Past Medical History / Comment(s): hiatal hernia, colitis History of Any Multi-Drug Resistant Organisms: None Reported Past Surgical History: Joint Replacement, Orthopedic Surgery Additional Past Surgical History / Comment(s): left shoulder replacement, 2 prior left shoulder surgeries, left knee replacement, L knee arthroscopy x 2, elbow sx, TLH 06/23/24 Past Anesthesia/Blood Transfusion Reactions: Motion Sickness Additional Past Anesthesia/Blood Transfusion Reaction / Comm: no hx blood t ransfusion Smoking Status: Never smoker - Past Family History Mother Family Medical History: Diabetes Mellitus Medications and Allergies Home Medications Medication Instructions Recorded Confirmed Type Ct Joint [facility] 1 tab PO DAILY 09/01/18 06/23/24 History Losartan Potassium 50 mg PO QAM 09/01/18 06/23/24 History Omeprazole [PriLOSEC] 40 mg PO QAM 09/01/18 06/23/24 History Simvastatin [Zocor] 40 mg PO DAILY 09/01/18 06/23/24 History ALPRAZolam [Xanax] 0.5 mg PO HS PRN 08/27/21 06/23/24 History Mupirocin 2% Oint [Bactroban 2% 1 applic NASAL TID 08/27/21 06/23/24 History Oint] [place]-3 Fatty Acids/Fish Oil [Fish 1 each PO DAILY 08/27/21 06/23/24 History Oil 1,000 mg Softgel] traMADol HCL [Ultram] 50 - 100 mg PO TID PRN 08/27/21 06/23/24 History Celecoxib [CeleBREX] 200 mg PO BID 06/21/24 06/23/24 History Aspirin 81 mg PO BID #60 tab 06/24/24 Rx Celecoxib [CeleBREX] 200 mg PO BID #60 cap 06/24/24 Rx Cyclobenzaprine [Flexeril] 5 mg PO TID PRN #30 tablet 06/24/24 Rx Docusate [Colace] 100 mg PO BID #60 capsule 06/24/24 Rx Omeprazole [PriLOSEC] 40 mg PO DAILY #30 cap 06/24/24 Rx Ondansetron [Zofran] 4 mg PO Q8HR PRN #20 tab 06/24/24 Rx oxyCODONE-APAP 5-325MG [Percocet 1 tab PO Q6HR PRN #32 tab 06/24/24 Rx 5-325 mg] Allergies Allergy/AdvReac Type Severity Reaction Status Date / Time No Known Allergies Allergy Verified 06/23/24 11:51 Physical Exam Vitals: Vital Signs Temp Pulse Resp BP Pulse Ox 06/24/24 09:47 82 18 06/24/24 07:23 98.8 F 82 18 139/87 97 06/24/24 00:43 98.5 F 77 14 119/69 92 L 06/23/24 18:58 91 107/66 96 06/23/24 18:43 86 109/68 96 06/23/24 18:28 85 122/80 93 L 06/23/24 18:13 85 139/78 95 06/23/24 17:58 87 132/85 95 06/23/24 17:43 90 132/84 95 06/23/24 17:28 86 137/85 95 06/23/24 17:12 98.7 F 85 16 136/84 96 06/23/24 16:48 85 16 133/60 94 L 06/23/24 16:34 72 16 157/74 94 L 06/23/24 16:18 82 16 151/67 99 06/23/24 16:01 75 16 174/81 99 06/23/24 15:48 98 F 86 16 177/85 99 06/23/24 12:50 56 L 17 148/90 96 06/23/24 11:50 97.0 F L 60 18 172/80 97 Intake and Output 06/23/24 06/24/24 06/24/24 22:59 06:59 14:59 Intake Total 600 Output Total 475 Balance 125 Intake: IV 600 Output: Urine 275 Estimated Blood Loss 200 Other: Voiding Method Toilet Toilet # Voids 2 Weight 104.9 kg PHYSICAL EXAM: VITAL SIGNS: [As above] GENERAL: Sitting up in bed, no acute distress HEENT: Conjunctivae normal. eyes normal. NECK: Supple, no JVD. CARDIOVASCULAR: S1, S2 regular.. No murmur RESPIRATION: Breath sounds diminished in the bases. No rhonchi or crackles. No bronchial breathing. ABDOMEN: Soft, nontender . No guarding. no masses palpable. No ascites, No hepatosplenomegaly.Bowel sounds heard. EXTREMITIES: Left hip dressing clean dry and intact, no calf tend erness,positive DP PSYCHIATRY: Alert and oriented X3, mood and affect normal. NERVOUS SYSTEM: Cranial N 2-12 grossly normal. No focal deficits. Strength and sensation grossly intact. Skin: Warm and dry, no rash Results CBC & Chem 7: 06/24/24 03:42 Labs: Abnormal Lab Results - Last 24 Hours (Table) 06/24/24 Range/Units 03:42 WBC 15.22 H (4.50-10.00) X 10*3/uL Immature Gran # 0.09 H (0.00-0.04) X 10*3/uL Neutrophils # 13.31 H (1.80-7.70) X 10*3/uL Lymphocytes # 0.73 L (0.90-5.00) X 10*3/uL Monocytes # 1.07 H (0.20-1.00) X 10*3/uL Eosinophils # 0 L (0.04-0.35) X 10*3/uL Assessment and Plan Assessment: Left hip osteoarthritis status post anterior total arthroplasty Postoperative atelectasis, expected outcome Gastroesophageal reflux disease Hypertension Hyperlipidemia Anxiety Plan: Continue on current medication regime ,monitoring and symptomatic treatment. PPI added on for GI prophylaxis. Pain management and DVT prophylaxis as per primary. PT. Aggressive pulmonary toileting with incentive spirometer reinforced. Patient anticipates discharge home today. Discharge planning in progress as per orthopedic surgery. Follow-up with PCP, Dr. Kessler in [address] Caballero for the consult. The impression and plan of care has been dictated as directed. : I performed a history and examination of this patient, discussed the same with the dictator. I agree with the dictator's note ,documented as a scribe. Any additional findings or plans will be noted.
[2024-06-24] MEDS ORDERED: MULTIVITAMINS, THERA 1 EACH TAB PO SCH (12:00)
[2024-06-24] MEDS ORDERED: TEMAZEPAM 15 MG CAP PO PRN (22:00)
== END 2024-06-24 12:05 | disposition home health service (06) ==
LOC: OR 11:28 → 4SSUR 15:38 → OR 06-24 12:05
PROVIDERS: ATTEND Orthopaedic Surgery
DX: M16.12 Unilateral primary osteoarthritis, left hip (principal)
CPT/HCPCS: 97161; 64999; 86900; 86901; 85025; 85730; 86850; 73501; 27130; C1776; J2250; J3370; J1100; J0690 ×2; J2405; J3010; J3490; J1171 ×2; J1885